=== PATIENT | female | born 1990 | race Caucasian/White ===

== ENCOUNTER 2016-12-27 08:55 | Emergency (ER) | payer MEDICAID ==
[~2016-12-27] VITALS: Ht 170.2 cm; Wt 83.9 kg
[2016-12-27 08:55] VITALS: BP 119/85; PULSE 75; RESP 16; TEMP 98.2; O2SAT 98
--- NOTE | 2016-12-27 08:55 | NUR ---
Placed in room 8 To gown for exam. Side rails up.
--- NOTE | 2016-12-27 09:00 | NUR ---
NERI Perdue.here for ok to book, pt has no any complaints.taking xanax and ambien at home.
--- NOTE | 2016-12-27 09:05 | NUR ---
ER at bedside examining patient.
--- NOTE | 2016-12-27 09:11 | NUR ---
Patient given written and verbal discharge instructions and verbalizes understanding. ER MD discussed with patient the results and treatment provided. Patient in stable condition. ID arm band removed. Rx of 0 given. Patient educated on pain management and to follow up with PMD. Pain Scale [0]. Opportunity for questions provided and answered.
== END 2016-12-27 09:10 ==
LOC: SED 08:55
DX: Z02.89 Encounter for other administrative examinations (principal); F41.9 Anxiety disorder, unspecified; G47.00 Insomnia, unspecified
CPT/HCPCS: 99283